=== PATIENT | female | born 2000 | race Caucasian/White ===

== ENCOUNTER 2018-01-22 13:16 | Emergency (ER) | payer SELFPAY ==
[~2018-01-22] VITALS: Ht 160 cm; Wt 48.7 kg
[2018-01-22 13:18] VITALS: BP 126/85; PULSE 95; RESP 16; TEMP 98.5; O2SAT 97
--- NOTE | 2018-01-22 13:54 | PD ---
HPI Chief Complaint: Cold / Flu Symptoms Time Seen by Provider: 13:29 Travel History International Travel<30 days: No Contact w/Intl Traveler<30days: No Traveled to known affect area: No History of Present Illness HPI 17-year-old female here with nasal congestion, cough, sneezing 2 days. No fever chills. Symptom severity is mild. No aggravating or alleviating factors. No sick contacts or foreign travel. PFSH Past Medical History Medical History: Denies Significant Hx Diminished Hearing: No Tetanus Vaccination: > 5 Years Influenza Vaccination: No ?: Not LMP: BCP Past Surgical History Surgical History: No Previous Surgery Social History Alcohol Use: No Tobacco Use: No Substance Use: No Allergies-Medications (Allergen,Severity, Reaction): Coded Allergies: No Known Allergies (Verified Allergy, Unknown, 01/22/18) Reported Meds & Prescriptions Reported Meds & Active Scripts Active Review of Systems Except as stated in HPI: all other systems reviewed are Neg General / Constitutional: No: Fever HENT: Positive: Sore Throat, Congestion Cardiovascular: No: Chest Pain or Discomfort Respiratory: Positive: Cough Gastrointestinal: No: Abdominal Pain Genitourinary: No: Dysuria Musculoskeletal: No: Pain Physical Exam Narrative GENERAL: Alert and well-appearing 17-year-old female SKIN: Warm and dry. No rash HEAD: Normocephalic. EYES: No injection or drainage. ENT: Clear nasal discharge. Mild pharyngeal erythema without tonsillar hypertrophy or exudate. Uvula is midline. Airways patent. Normal phonation. NECK: Supple, trachea midline. no meningismus. CARDIOVASCULAR: Regular rate and rhythm without murmurs, gallops, or rubs. RESPIRATORY: Breath sounds equal bilaterally. No accessory muscle use. GASTROINTESTINAL: Abdomen soft, non-tender, nondistended. MUSCULOSKELETAL: No cyanosis, or edema. BACK: Nontender without obvious deformity. No CVA tenderness. Data Data Last Documented VS Vital Signs Date Time Temp Pulse Resp B/P (MAP) Pulse Ox O2 Delivery O2 Flow Rate FiO2 01/22/18 13:18 98.5 95 16 126/85 (99) 97 MDM Medical Decision Making Medical Screen Exam Complete: Yes Emergency Medical Condition: Yes Differential Diagnosis URI, sinusitis, influenza Narrative Course 17-year-old female here with mild viral upper respiratory infection. She is nontoxic appearing. Vital signs stable. Symptomatic treatment discussed. Diagnosis Primary Impression: Viral URI Referrals: Primary Care Physician Departure Forms: Tests/Procedures, Work Release Enter return to work date: Jan 25, 2018 Additional Instructions: Tylenol or ibuprofen as needed for fever. Drink plenty fluids. Rest Disposition: 01 DISCHARGE HOME Condition: Stable Lizzie Lema Jan 22, 2018 13:54
== END 2018-01-22 14:23 | disposition home or self-care (01) ==
LOC: PHEFT 13:16
DX: J06.9 Acute upper respiratory infection, unspecified (principal)
CPT/HCPCS: 99282